=== PATIENT | female | born 2000 | race Caucasian/White ===

== ENCOUNTER 2025-09-08 06:06 | Inpatient (IN) ==
[2025-09-08] MEDS ORDERED: IOPAMIDOL 100 ML BOTTLE IV ONE (06:07)
[2025-09-08] MEDS: 0.9 % SODIUM CHLORIDE 1,000 ML IV ONE ×2 (06:42→09:19)
[2025-09-08] MEDS: KETOROLAC 15 MG/ML VIAL IV ONE (06:42)
[2025-09-08] MEDS: IPRATROPIUM/ALBUTEROL 3 ML AMPUL.NEB NEB ONE (06:47)
[2025-09-08] MEDS: ONDANSETRON 4 MG/2 ML VIAL IV ONE (07:01)
[2025-09-08 07:03] LABS: Basophils # (Auto) 0.02 K/mcL (0.00-0.30); Basophils % (Auto) 0.2 % (0.0-2.0); Eosinophils # (Auto) 0.03 K/mcL (0.00-0.70); Eosinophils % (Auto) 0.3 % (0.0-7.0); Hematocrit 36.4 % (34.1-44.9); Hemoglobin 11.5 g/dL (11.2-15.7); Lymphocytes # (Auto) 0.91 K/mcL (1.50-4.80); Lymphocytes % (Auto) 8.4 % (15.5-49.0); Mean Corpuscular HGB Conc 31.6 g/dL (31.0-36.0); Monocytes # (Auto) 0.40 K/mcL (0.10-0.90); Monocytes % (Auto) 3.7 % (1.0-12.0); Neutrophils % (Auto) 87.2 % (38.0-78.0); Platelet Count 211 K/mcL (140-440); RBC 4.30 M/mcL (3.59-5.38); WBC 10.9 K/mcL (4.5-11.0)
[2025-09-08 07:23] LABS: HCG,Serum Negative
[2025-09-08 07:24] LABS: Alcohol,Blood < 0.010 g/dL (<0.010)
[2025-09-08 07:25] LABS: ALT/SGPT 21 U/L (<40); AST/SGOT 71 U/L (<32); Albumin 4.2 gm/dL (3.2-5.2); Albumin/Globulin Ratio 1.4 (1.0-2.3); Alkaline Phosphatase 76 U/L (39-117); Anion Gap 11.0 (8.0-16.0); Bilirubin,Total 0.3 mg/dL (0.1-1.0); Blood Urea Nitrogen 11 mg/dL (6-20); Calcium 9.1 mg/dL (8.6-10.4); Carbon Dioxide 21 mmol/L (22-30); Chloride 111 mmol/L (96-108); Globulin 3.1 gm/dL (2.2-3.7); Glucose 94 mg/dL (70-105); Potassium 3.4 mmol/L (3.3-5.1); Sodium 143 mmol/L (133-145)
[2025-09-08 08:05] LABS: Bacteria,Urine Mod /hpf (0); Bilirubin,Urine Negative (Negative); Color,Urine LT. YELLOW; Glucose,Urine (UA) NEGATIVE (Negative); Ketones,Urine 40 mg/dL (Negative); Leukocyte Esterase,Urine NEGATIVE /uL (Negative); PH,Urine 6.0 (5.0-9.0); Protein,Urine 30 mg/dL (Negative); Specific Gravity,Urine 1.025 (1.000-1.035); Urobilinogen,Urine 0.2 mg/dL
[2025-09-08] MEDS: AZITHROMYCIN 250 MG TABLET PO ONE (09:12)
[2025-09-08] MEDS: LORazepam 2 MG/ML VIAL IV ONE ×2 (09:15→09:57)
[2025-09-08] MEDS: cefTRIAXone 1 GM VIAL IM ONE (09:18)
[2025-09-08] MEDS: cefTRIAXone 1 GM VIAL IV ONE (09:19)
[2025-09-08] MEDS: 0.9 % SODIUM CHLORIDE 500 ML IV ONE (09:24)
[2025-09-08] MEDS ORDERED: POTASSIUM CHLORIDE 20 MEQ TABLET PO PRN (11:21)
[2025-09-08] MEDS ORDERED: POLYETHYLENE GLYCOL 3350 17 GM PACKET PO PRN (11:21)
[2025-09-08] MEDS ORDERED: POTASSIUM CHLORIDE 40 MEQ in DEXTROSE 5% IN WATER 500 ML IV PRN (11:21)
[2025-09-08] MEDS ORDERED: MAGNESIUM SULFATE 2 GM/50 ML BAG IV PRN (11:21)
[2025-09-08] MEDS ORDERED: SENNOSIDES 1 TABLET PO PRN (11:21)
[2025-09-08] MEDS: 0.9 % SODIUM CHLORIDE 10 ML SYRINGE IV SCH (13:41)
[2025-09-08] MEDS: NICOTINE 21 MG PATCH TOPICAL SCH (13:49)
[2025-09-08] MEDS: IPRATROPIUM/ALBUTEROL 3 ML AMPUL.NEB NEB PRN (20:14)
[2025-09-08] MEDS: DOCUSATE SODIUM 100 MG CAPSULE PO SCH (20:34)
[2025-09-08] MEDS: FUROSEMIDE 40 MG/4 ML VIAL IV ONE ×2 (21:33→22:04)
[2025-09-08] MEDS: DIAZEPAM 10 MG/2 ML SYRINGE IV PRN (22:51)
[2025-09-08] MEDS: ACETAMINOPHEN 325 MG TABLET PO PRN (22:52)
[2025-09-08] MEDS: DEXMEDETOMIDINE 400 MCG in PREMIX 1 BAG IV PRN (23:17)
[2025-09-08] MEDS: DEXMEDETOMIDINE 100 ML IV ONE (23:23)
[2025-09-09 06:11] LABS: Basophils # (Auto) 0.01 K/mcL (0.00-0.30); Basophils % (Auto) 0.1 % (0.0-2.0); Eosinophils # (Auto) 0 K/mcL (0.00-0.70); Eosinophils % (Auto) 0 % (0.0-7.0); Hematocrit 32.6 % (34.1-44.9); Hemoglobin 10.5 g/dL (11.2-15.7); Lymphocytes # (Auto) 1.02 K/mcL (1.50-4.80); Lymphocytes % (Auto) 6.6 % (15.5-49.0); Mean Corpuscular HGB Conc 32.2 g/dL (31.0-36.0); Monocytes # (Auto) 0.46 K/mcL (0.10-0.90); Monocytes % (Auto) 3.0 % (1.0-12.0); Neutrophils % (Auto) 89.7 % (38.0-78.0); Platelet Count 229 K/mcL (140-440); RBC 3.90 M/mcL (3.59-5.38); WBC 15.5 K/mcL (4.5-11.0)
[2025-09-09] MEDS: METOCLOPRAMIDE 10 MG/2 ML VIAL IV PRN (06:16)
[2025-09-09 06:35] LABS: ALT/SGPT 17 U/L (<40); AST/SGOT 44 U/L (<32); Albumin 3.8 gm/dL (3.2-5.2); Albumin/Globulin Ratio 1.3 (1.0-2.3); Alkaline Phosphatase 68 U/L (39-117); Anion Gap 11.0 (8.0-16.0); Bilirubin,Direct < 0.2 mg/dL (0-0.3); Bilirubin,Total 0.4 mg/dL (0.1-1.0); Blood Urea Nitrogen 12 mg/dL (6-20); Calcium 8.8 mg/dL (8.6-10.4); Carbon Dioxide 22 mmol/L (22-30); Chloride 108 mmol/L (96-108); Globulin 3.0 gm/dL (2.2-3.7); Glucose 123 mg/dL (70-105); Phosphorous 4.3 mg/dL (2.5-4.5); Potassium 3.4 mmol/L (3.3-5.1); Sodium 141 mmol/L (133-145); Triglycerides 84 mg/dL (<150); Uric Acid 2.9 mg/dL (2.5-8.0)
[2025-09-09] MEDS: ENOXAPARIN 40 MG/0.4 ML SYRINGE SQ SCH (09:47)
[2025-09-09] MEDS: FUROSEMIDE 20 MG/2 ML VIAL IV ONE (09:48)
[2025-09-09] MEDS: cefTRIAXone 1 GM VIAL IV SCH (09:48)
[2025-09-09] MEDS: SERTRALINE 100 MG TABLET PO SCH (09:48)
[2025-09-09] MEDS: AZITHROMYCIN 500 MG in DEXTROSE 5% IN WATER 250 ML IV SCH (10:48)
[2025-09-09] MEDS: DEXMEDETOMIDINE 100 ML IV ONE ×2 (11:59→23:19)
[2025-09-10 06:18] LABS: Hematocrit 33.9 % (34.1-44.9); Hemoglobin 10.5 g/dL (11.2-15.7); Mean Corpuscular HGB Conc 31.0 g/dL (31.0-36.0); Platelet Count 188 K/mcL (140-440); RBC 3.92 M/mcL (3.59-5.38); WBC 8.5 K/mcL (4.5-11.0)
[2025-09-10 06:38] LABS: ALT/SGPT 13 U/L (<40); AST/SGOT 28 U/L (<32); Albumin 3.8 gm/dL (3.2-5.2); Albumin/Globulin Ratio 1.3 (1.0-2.3); Alkaline Phosphatase 63 U/L (39-117); Anion Gap 11.0 (8.0-16.0); Bilirubin,Direct < 0.2 mg/dL (0-0.3); Bilirubin,Total 0.3 mg/dL (0.1-1.0); Blood Urea Nitrogen 15 mg/dL (6-20); C-Reactive Protein 5.92 mg/dL (0.03-0.80); Calcium 8.9 mg/dL (8.6-10.4); Carbon Dioxide 24 mmol/L (22-30); Chloride 106 mmol/L (96-108); Globulin 3.0 gm/dL (2.2-3.7); Glucose 108 mg/dL (70-105); Phosphorous 2.6 mg/dL (2.5-4.5); Potassium 3.2 mmol/L (3.3-5.1); Sodium 141 mmol/L (133-145); Triglycerides 135 mg/dL (<150); Uric Acid 3.4 mg/dL (2.5-8.0)
[2025-09-10 08:08] LABS: RBC Morphology NORMAL (Normal)
[2025-09-10] MEDS: POTASSIUM CHLORIDE 20 MEQ TABLET PO PRN (10:34)
[2025-09-10] MEDS: ONDANSETRON 4 MG/2 ML VIAL IV PRN (11:34)
[2025-09-11 07:42] LABS: Basophils # (Auto) 0.02 K/mcL (0.00-0.30); Basophils % (Auto) 0.3 % (0.0-2.0); Eosinophils # (Auto) 0.20 K/mcL (0.00-0.70); Eosinophils % (Auto) 2.5 % (0.0-7.0); Hematocrit 34.3 % (34.1-44.9); Hemoglobin 11.0 g/dL (11.2-15.7); Lymphocytes # (Auto) 1.37 K/mcL (1.50-4.80); Lymphocytes % (Auto) 17.1 % (15.5-49.0); Mean Corpuscular HGB Conc 32.1 g/dL (31.0-36.0); Monocytes # (Auto) 0.31 K/mcL (0.10-0.90); Monocytes % (Auto) 3.9 % (1.0-12.0); Neutrophils % (Auto) 75.1 % (38.0-78.0); Platelet Count 259 K/mcL (140-440); RBC 4.08 M/mcL (3.59-5.38); WBC 8.0 K/mcL (4.5-11.0)
[2025-09-11 08:01] LABS: ALT/SGPT 12 U/L (<40); AST/SGOT 24 U/L (<32); Albumin 3.8 gm/dL (3.2-5.2); Albumin/Globulin Ratio 1.2 (1.0-2.3); Alkaline Phosphatase 61 U/L (39-117); Anion Gap 12.0 (8.0-16.0); Bilirubin,Direct < 0.2 mg/dL (0-0.3); Bilirubin,Total 0.2 mg/dL (0.1-1.0); Blood Urea Nitrogen 14 mg/dL (6-20); Calcium 9.0 mg/dL (8.6-10.4); Carbon Dioxide 22 mmol/L (22-30); Chloride 107 mmol/L (96-108); Globulin 3.2 gm/dL (2.2-3.7); Glucose 91 mg/dL (70-105); Phosphorous 3.4 mg/dL (2.5-4.5); Potassium 3.3 mmol/L (3.3-5.1); Sodium 141 mmol/L (133-145); Triglycerides 118 mg/dL (<150); Uric Acid 2.6 mg/dL (2.5-8.0)
[2025-09-13 13:46] LABS: Myeloperoxidase ABS <1.0 AI; Proteinase-3-AB <1.0 AI
[2025-09-14 10:09] LABS: DNA AB(DS) Crithidia, IFA Negative (Negative); Rhuematoid Factor 20.0 IU/mL (<14.0); SS-A <0.2 AI (0.0-0.9); SS-B <0.2 AI (0.0-0.9); Scl-70 <0.2 AI (0.0-0.9)
== END 2025-09-11 10:42 | disposition home or self-care (01) | DRG 205 ==
LOC: ED 06:06 → MEDSUR 11:59 → ICU 21:44
PROVIDERS: ADMIT Internal Medicine; ATTEND Internal Medicine